=== PATIENT | male | born 2005 | race Caucasian/White ===

== ENCOUNTER 2025-08-30 10:02 | Outpatient (CLI) | payer BC | END 2025-08-30 10:03 | disposition home or self-care (01) | LOC: SCSMRI 10:02 | PROVIDERS: ATTEND Family Medicine Sports Medicine | DX: M54.16 Radiculopathy, lumbar region (principal); M48.061 Spinal stenosis, lumbar region without neurogenic claudication; M48.07 Spinal stenosis, lumbosacral region | CPT/HCPCS: 72148 ==